=== PATIENT | female | born 1965 | race Caucasian/White ===

== ENCOUNTER 2017-03-07 10:14 | Emergency (ER) | payer OTHER ==
[~2017-03-07] VITALS: Ht 165.1 cm; Wt 84.3 kg
[2017-03-07] MEDS ORDERED: CEFDINIR 300 MG CAPSULE ONE (10:56)
[2017-03-07] MEDS ORDERED: PHENAZOPYRIDINE 200 MG TABLET ONE (10:56)
[2017-03-07] MEDS ORDERED: CEFDINIR 300 MG CAPSULE PO ONE (11:00)
[2017-03-07] MEDS ORDERED: PHENAZOPYRIDINE 200 MG TABLET PO ONE (11:00)
[2017-03-07 11:17] LABS: MICROSCOPIC AUTO
[2017-03-07 11:18] LABS: CULTURE INDICATED? YES
[2017-03-07 11:20] VITALS: BP 122/72
== END 2017-03-07 11:22 | disposition home or self-care (01) ==
LOC: ED 11:06
DX: N30.91 Cystitis, unspecified with hematuria (principal)
CPT/HCPCS: 81001; 87077; 87086; 87186; 99284

== ENCOUNTER → 2017-03-11 | Outpatient (CLI) | payer OTHER | LOC: CFH 09:03 | PROVIDERS: ATTEND Nurse Practitioner Family | DX: M25.871 Other specified joint disorders, right ankle and foot (principal); W19.XXXD Unspecified fall, subsequent encounter ==

== ENCOUNTER → 2017-09-21 | Outpatient (CLI) | payer OTHER | END | disposition home or self-care (01) | LOC: CFH 07:34 | PROVIDERS: ATTEND Nurse Practitioner Family | DX: Z12.31 Encounter for screening mammogram for malignant neoplasm of breast (principal) | CPT/HCPCS: 77067 ==

== ENCOUNTER → 2017-09-24 | Outpatient (CLI) | payer OTHER | END | disposition home or self-care (01) | LOC: CFH 13:20 | PROVIDERS: ATTEND Nurse Practitioner Family | DX: R92.8 Other abnormal and inconclusive findings on diagnostic imaging of breast (principal) | CPT/HCPCS: 77065 ==

== ENCOUNTER → 2017-12-15 | Outpatient (CLI) | payer OTHER | END | disposition home or self-care (01) | LOC: CFH 16:06 | PROVIDERS: ATTEND Nurse Practitioner Family | DX: M48.02 Spinal stenosis, cervical region (principal) | CPT/HCPCS: 72050 ==